=== PATIENT | male | born 1930 | race Two or more races ===

== ENCOUNTER 2019-01-16 06:50 | Emergency (ER) | payer MEDICARE, BC ==
[~2019-01-16] VITALS: Ht 175.3 cm; Wt 81.6 kg
--- NOTE | 2019-01-16 07:11 | NUR ---
DR LAINEZ AT THE BED SIDE
--- NOTE | 2019-01-16 07:34 | NUR ---
LAB DRAWN AND SENT TO LAB. [employer] AT BEDSIDE FOR CXR.
[2019-01-16 07:36] LABS: HEMOGLOBIN 12.8 g/dL (13.5-17.5)
[2019-01-16 07:43] LABS: BASOPHILS # (AUTO) 0.1 /CMM (0.0-0.2); BASOPHILS % (AUTO) 0.9 % (0.0-2.0); EOSINOPHILS % (AUTO) 0.6 % (0.0-6.0); HEMATOCRIT 36 % (39-51); LYMPHOCYTES % (AUTO) 11.9 % (20.0-44.0); MEAN CORPUSCULAR HGB CONC 35 g/dl (31.0-36.0); MEAN CORPUSCULAR VOLUME 97 fL (80-96); MONOCYTES # (AUTO) 1.3 /CMM (0.1-1.30); MONOCYTES % (AUTO) 16.2 % (2.0-12.0); NEUTROPHILS # (AUTO) 5.7 /CMM (1.8-8.9); NEUTROPHILS % (AUTO) 70.4 % (43.0-81.0); PLATELET COUNT (AUTO) 130 /CMM (150-450); RED BLOOD CELL COUNT(AUTO) 3.75 MIL/uL (4.5-6.0); WHITE BLOOD COUNT (AUTO) 8.1 K/uL (4.3-11.0)
[2019-01-16 07:46] LABS: CALCIUM, SERUM 7.9 mg/dL (8.5-10.1); CREATININE 1.3 mg/dL (0.6-1.3); POTASSIUM 3.5 mmol/L (3.5-5.1)
[2019-01-16 07:48] LABS: APPEARANCE,URINE Clear (CLEAR); BILIRUBIN,URINE Negative (NEGATIVE); BLOOD, URINE Negative Ery/uL (NEGATIVE); COLOR,URINE Yellow (YELLOW); KETONES,URINE Negative (NEGATIVE); LEUKOCYTE ESTERASE ,URINE Negative (NEGATIVE); NITRITE, URINE Negative (NEGATIVE); PH,URINE 5.5 (5.0-8.0); PROTEIN,URINE Negative (NEGATIVE); UGLUCOSE Negative (NEGATIVE); UROBILINOGEN,URINE 0.2 EU/dL (0.2)
[2019-01-16 08:01] LABS: ALBUMIN 3.2 g/dL (3.4-5.0); BILIRUBIN,DIRECT 0.3 mg/dL (0.0-0.2); BILIRUBIN,TOTAL 1.1 mg/dL (0.2-1.0); TOTAL PROTEIN, SERUM 6.5 g/dL (6.4-8.2)
--- NOTE | 2019-01-16 08:33 | NUR ---
Patient discharged to home with family in stable condition. Written and verbal after care instructions given. Patient verbalizes understanding of instruction.
[2019-01-16 08:34] VITALS: BP 120/53
[2019-01-16 08:56] LABS: LYMPHOCYTES % (MANUAL) 12 % (16-48); MONOCYTES % (MANUAL) 11 % (0-11.0); NEUTROPHILS % (MANUAL) 77 (42-76)
== END 2019-01-16 08:35 | disposition home or self-care (01) ==
LOC: ER 06:50
DX: R50.9 Fever, unspecified (principal); I10 Essential (primary) hypertension
CPT/HCPCS: 36415; 71045-TC; 80048-TC; 80076-TC; 81000-TC; 85025-TC